=== PATIENT | female | born 1975 | race Caucasian/White ===

== ENCOUNTER 2024-08-11 17:52 | Emergency (ER) | payer OTHER, SELFPAY ==
[2024-08-11 18:05] VITALS: BP 163/82; PULSE 109; RESP 17; TEMP 36.4; O2SAT 98
--- NOTE | 2024-08-11 20:35 | PC.NURSE ---
Pt did not answer when called to a room, x3. Did not notify operator automated process declined to be seen and exit from ER was not witnessed.
== END 2024-08-11 20:35 | disposition left against medical advice (07) ==
LOC: ANHED 20:40
DX: Z53.21 Procedure and treatment not carried out due to patient leaving prior to being seen by health care provider (principal)
CPT/HCPCS: 99199